=== PATIENT | male | born 1975 | race Caucasian/White ===

== ENCOUNTER → 2019-01-30 | Outpatient (CLI) | payer OTHER | LOC: RAD 01-23 07:26 | DX: S73.192A Other sprain of left hip, initial encounter (principal); M16.12 Unilateral primary osteoarthritis, left hip ==

== ENCOUNTER → 2019-02-11 | Day surgery (SDC) | payer OTHER | LOC: MSO 08:33 | DX: Z12.11 Encounter for screening for malignant neoplasm of colon (principal); D12.5 Benign neoplasm of sigmoid colon; K63.5 Polyp of colon; Z80.0 Family history of malignant neoplasm of digestive organs; Z88.0 Allergy status to penicillin | CPT/HCPCS: 00811; J2704; J7120 ==

== ENCOUNTER → 2020-04-14 | Outpatient (CLI) | payer OTHER ==
[2020-04-14 10:55] LABS: EOS # 0.2 (0.04-0.40); EOS % 4.3 % (0.0-4.0); HEMATOCRIT 48.1 % (42.0-52.0); HEMOGLOBIN 15.9 g/dL (13.5-18.0); LYMPH# 1.3 (1.50-4.00); MEAN CELL VOLUME 91 fl (78-100); MEAN CORPUSCULAR HEMOGLOBIN 30 pg (27-31); MEAN CORPUSCULAR HGB CONC 33 g/dL (33-37); MONO # 0.5 (0.20-0.80); NEU # 2.4 (1.40-6.50); PLATELET COUNT 141 K/mm3 (130-400); RED BLOOD COUNT 5.28 M/mm3 (4.20-5.60); RED CELL DISTRIBUTION WIDTH 12.4 % (11.5-14.5); WHITE BLOOD COUNT 4.4 K/mm3 (4.8-10.8)
[2020-04-14 11:02] LABS: ALBUMIN 4.7 g/dL (3.5-5.0); POTASSIUM 4.5 mmol/L (3.5-5.1)
[2020-04-14 11:03] LABS: CALCIUM 9.5 mg/dL (8.3-10.5)
[2020-04-14 11:04] LABS: TOTAL PROTEIN 7.3 g/dL (6.4-8.3)
[2020-04-14 11:06] LABS: TOTAL BILIRUBIN 0.7 mg/dL (0.2-1.2)
== END ==
LOC: LAB 10:44
PROVIDERS: Family Medicine
DX: Z00.00 Encounter for general adult medical examination without abnormal findings (principal); E78.5 Hyperlipidemia, unspecified; R09.81 Nasal congestion

== ENCOUNTER → 2020-09-01 | Outpatient (CLI) | payer OTHER | LOC: LAB 12:11 | DX: R05 Cough (principal); R50.9 Fever, unspecified; R06.02 Shortness of breath; M79.10 Myalgia, unspecified site; R09.81 Nasal congestion; R53.83 Other fatigue; Z20.828 Contact with and (suspected) exposure to other viral communicable diseases ==

== ENCOUNTER → 2020-10-09 | Outpatient (CLI) | payer OTHER | LOC: CARDLAB 10-08 15:42 → CARDREHAB 07:50 | DX: Z01.818 Encounter for other preprocedural examination (principal); R07.9 Chest pain, unspecified | CPT/HCPCS: A9500 ==

== ENCOUNTER 2022-07-13 13:30 | Outpatient (RCR) | payer OTHER | END 2022-08-10 | disposition home or self-care (01) | LOC: PT | DX: M67.824 Other specified disorders of tendon, left elbow (principal) ==

== ENCOUNTER 2023-09-18 09:57 | Outpatient (RCR) | payer OTHER | END 2023-10-11 | disposition home or self-care (01) | LOC: PT | DX: M25.561 Pain in right knee (principal); Z98.890 Other specified postprocedural states ==